=== PATIENT | female | born 1995 ===

== ENCOUNTER 2017-03-23 11:57 | Day surgery (SDC) | payer BC, OTHER ==
[2017-03-23 13:56] LABS: BASO # 0.1 K/uL (0.0-0.2); BASO % 0.5 % (0.0-2.0); EOS # 0.1 K/uL (0.0-0.7); HEMOGLOBIN 13.9 g/dL (11.0-16.0); LYMPH # 1.4 K/uL (1.0-4.3); LYMPH % 13.1 % (20.0-40.0); MEAN CELL VOLUME 88.7 fL (81.0-99.0); MEAN CORPUSCULAR HEMOGLOBIN 29.1 pg (27.0-31.0); MEAN CORPUSCULAR HGB CONC 32.8 g/dL (33.0-37.0); MEAN PLATELET VOLUME 9.2 fL (7.2-11.7); MONO # 0.5 K/uL (0.0-0.8); NEUT # 8.3 K/uL (1.8-7.0); NEUT % 80.4 % (50.0-75.0); NRBC % 0.1 % (0.0-2.0); RBC 4.78 Mil/uL (3.80-5.20); RED CELL DISTRIBUTION WIDTH 13.3 % (11.5-14.5); WHITE BLOOD COUNT 10.3 K/uL (4.8-10.8)
[2017-03-23 14:01] LABS: HCG,QUALITATIVE URINE NEGATIVE (NEGATIVE)
[2017-03-23 14:02] LABS: SQUAMOUS EPITHIAL 2 /hpf (0-5); URINE BACTERIA RARE (<OCC); URINE BILIRUBIN NEGATIVE (NEGATIVE); URINE BLOOD NEGATIVE (NEGATIVE); URINE CLARITY Clear (Clear); URINE COLOR Yellow (YELLOW); URINE GLUCOSE (UA) NORMAL (Normal); URINE LEUKOCYTE ESTERASE NEG Leu/uL (Negative); URINE NITRATE NEGATIVE (NEGATIVE); URINE PROTEIN NEGATIVE (NEGATIVE); URINE UROBILINOGEN NORMAL mg/dL (0.2-1.0)
[2017-03-23 14:07] LABS: ALBUMIN 4.1 g/dL (3.5-5.0)
[2017-03-23 14:09] LABS: GFR AFRICAN-AMERICAN > 60; GFR NON-AFRICAN AMERICAN > 60
[2017-03-23 14:10] LABS: ALB/GLOB RATIO 1.1 (1.0-2.1); ALT/SGPT 29 U/L (9-52); AST/SGOT 29 U/L (14-36); BLOOD UREA NITROGEN 9 mg/dL (7-17); CALCIUM 9.2 mg/dl (8.6-10.4)
--- NOTE | 2017-03-23 14:30 | C.PDOC ---
History Of Present Illness 21-year-old female presents to the emergency department with complaints of right -lower quadrant abdominal pain that started two weeks ago. Patient states she was seen in [facility] [place], where she had a CT scan and transvaginal US, they showed a large right ovarian cyst. Patient was not given any pain meds on discharge, and was instructed to f/u with OBGYN within two weeks. Patient reports worsening pain over the past week, which became severe this morning. Patient denies nausea/vomiting, fever/chills, chest pain, dysuria/hematuria, vaginal bleeding/discharge. Time Seen by Provider: 03/23/17 13:02 Chief Complaint (Nursing): Abdominal Pain History Per: Patient History/Exam Limitations: no limitations Onset/Duration Of Symptoms: Days Current Symptoms Are (Timing): Still Present Severity: Moderate Location Of Pain/Discomfort: RLQ Past Medical History Reviewed: Historical Data, Nursing Documentation, Vital Signs Vital Signs: Last Vital Signs Temp 98.4 F 03/24/17 08:00 Pulse 83 03/24/17 08:00 Resp 18 03/24/17 08:00 BP 102/58 L 03/24/17 08:00 Pulse Ox 99 03/28/17 17:38 - Medical History PMH: No Chronic Diseases Family History: States: No Known Family Hx - Social History Hx Alcohol Use: Yes Hx Substance Use: No - Immunization History Hx Tetanus Toxoid Vaccination: No Hx Influenza Vaccination: Yes Hx Pneumococcal Vaccination: No Review Of Systems Except As Marked, All Systems Reviewed And Found Negative. Constitutional: Negative for: Fever, Chills Cardiovascular: Negative for: Chest Pain Gastrointestinal: Negative for: Nausea, Vomiting Genitourinary: Positive for: Pelvic Pain. Negative for: Dysuria, Frequency, Hematuria, Vaginal Discharge, Vaginal Bleeding Neurological: Negative for: Weakness Physical Exam - Physical Exam Appears: Well, Non-toxic, In Acute Distress (in mild pain ) Skin: Warm, Dry, No Rash Eye(s): bilateral: Normal Inspection Oral Mucosa: Moist Neck: Normal ROM Cardiovascular: Rhythm Regular Respiratory: Normal Breath Sounds, No Rales, No Rhonchi, No Wheezing Gastrointestinal/Abdominal: Bowel Sounds, Soft, Tenderness (right adenexal and suprapubic TTP, (-) McBurney's), No Guarding, No Rebound Back: No CVA Tenderness Pelvic: Other (deferred - patient is a virgin) Extremity: Normal ROM Neurological/Psych: Oriented x3 ED Course And Treatment - Laboratory Results Result Diagrams: 03/24/17 09:13 03/23/17 13:40 ECG: Interpreted By Me, Viewed By Me (NSR 66 bpm, normal axis, no acute ST/T wave changes) ECG Interpretation: Normal O2 Sat by Pulse Oximetry: 99 (RA) Pulse Ox Interpretation: Normal - Radiology CXR: Interpreted by Me, Viewed By Me CXR Interpretation: Yes: No Acute Disease. No: Infiltrates Progress Note: Blood work, UA, pelviuc US ordered and reviewed. Patient given IV NS bolus, IV toradol. Patient unable to tolerate transvaginal US, and US report unable to rule out torsion - will discuss with high school foreign language teacher. 1656-Dr. Lugo (OB production line assembler) evaluated pt in ED, agrees with admission to same day surgery for large ovarian cyst, r/o possible torsion. - Physician Consult Information Physician Contacted: Carina Lugo Outcome Of Conversation: Discussed patient with Dr. Lugo, she will come down and evaluate patient in ER. Medical Decision Making Medical Decision Making: large ovarian cyst with concern for ovarian torsion, to go to OR with high school foreign language teacher Dr. Lugo Disposition - Disposition Disposition: HOSPITALIZED Disposition Time: 16:57 Condition: STABLE - Clinical Impression Clinical Impression: Adnexal pain, Ovarian cyst, Ovarian torsion - Scribe Statement The provider has reviewed the documentation as recorded by the Scribe (Alysha Mcgraw) All medical record entries made by the Scribe were at my direction and personally dictated by me. I have reviewed the chart and agree that the record accurately reflects my personal performance of the history, physical exam, medical decision making, and the department course for this patient. I have also personally directed, reviewed, and agree with the discharge instructions and disposition. Decision To Admit - Pt Status Changed To: Hospital Disposition Of: SDS- Endo,OR,Cath,IR - . Bed Request Type: Same Day Surgery Admitting Physician: Carina Lugo Patient Diagnosis: Adnexal pain, Ovarian cyst, Ovarian torsion
--- NOTE | 2017-03-23 15:34 | US ---
HISTORY: Right pelvic pain, ovarian cyst r/o torsion COMPARISON: None available. TECHNIQUE: Transabdominal and pelvic ultrasound was performed. FINDINGS: UTERUS: Measures 8.8 x 4.0 x 4.7 cm. Anteverted, normal in size and appearance. No fibroid or other mass lesion seen. ENDOMETRIUM: Measures 9.0 mm in diameter. Unremarkable. CERVIX: No cervical abnormality identified. RIGHT OVARY: There is a 10.8 x 9.0 x 11.6 cm large anechoic septated mass in the right adnexa. The right ovary is not discretely identified from the mass. LEFT OVARY: Measures we3.4 x 2.5 x 3.0 cm. No solid mass. Normal flow. FREE FLUID: No significant free fluid noted. OTHER FINDINGS: IMPRESSION: 1. 10.8 x 9.0 x 11.6 cm multi-septated cystic mass in the right adnexa are likely represents a septated cyst, cystadenoma and cystadenocarcinoma are other less likely differential considerations in this age group. Follow-up in 3 months is recommended to assess stability/ resolution. The right ovary is not distinctly identified. Ovarian torsion is not entirely excluded on this examination.
[2017-03-23] MEDS ORDERED: cefOXitin IV 2 gm in Dextrose 2 GM/50 ML BAG IVPB ONE (17:16)
--- NOTE | 2017-03-23 17:28 | RAD ---
PROCEDURE: CHEST RADIOGRAPH, 1 VIEW HISTORY: Preoperative COMPARISON: None available. FINDINGS: LUNGS: The lungs are well inflated and clear. PLEURA: No pneumothorax or pleural fluid seen. CARDIOVASCULAR: Normal. OSSEOUS STRUCTURES: No significant abnormalities. VISUALIZED UPPER ABDOMEN: Normal. OTHER FINDINGS: None. IMPRESSION: No active pulmonary disease.
--- NOTE | 2017-03-23 17:29 | CP.PCM.HP ---
History of Present Illness - History of Present Illness History of Present Illness: 21 y.o. G0 LNMP 02/23/17, c/o worsening RLQ pain today, pain scale 10/10; described a pulling, stinging sensation; associated with nausea and vomiting. S/ P ultrasound in E.D.: right ovarian anechoic septated mass, 10.8 x 9 x 11.6 cm. No comment made on blood flow to right adnexal mass. Normal left ovary with normal flow; no pelvic fluid. HPI: onset of RLQ pain 03/13/17, then 04/30. Worse 03/15/17 - [place] [facility] [place] performed: large septated right ovarian cyst with normal arterial and venous blood flows. Patient given IVFs and advised to F/U as outpatient with extruder operator helper. Between then and today, pain waxes and wanes, though could barely walk or sleep last night; vomited every other day. Painful BM. (+) appetite. P Ob: nullip P HOME HEALTH PROVIDER: virgin; 12 x 8 times per year x 5-6 PMH: denies PSH: 2014, right ACL surgery Meds: none NKDA Soc Hx: denies tobacco, illicit drug use. Soc EtOH. Lives with her mother. 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 Father alive 49 y.o.; both, no med issues. No known fam h/o cancer Present on Admission - Present on Admission Any Indicators Present on Admission: No Review of Systems - Review of Systems All systems: reviewed and no additional remarkable complaints except - Gastrointestinal Gastrointestinal: As Per HPI - Reproductive: Female Reproductive:Female: As Per HPI Past Patient History - Infectious Disease Hx of Infectious Diseases: None - Tetanus Immunizations Tetanus Immunization: Unknown - Past Medical History & Family History Past Medical History?: No Past Family History: Reviewed and not pertinent - Past Social History Smoking Status: Never Smoked Alcohol: Occasional Drugs: Denies Home Situation {Lives}: With Family - CARDIAC Hx Cardiac Disorders: No - PULMONARY Hx Respiratory Disorders: No - NEUROLOGICAL Hx Neurological Disorder: No - HEENT Hx HEENT Problems: No - RENAL Hx Chronic Kidney Disease: No - ENDOCRINE/METABOLIC Hx Endocrine Disorders: No - HEMATOLOGICAL/ONCOLOGICAL Hx Blood Disorders: No - INTEGUMENTARY Hx Dermatological Problems: No - MUSCULOSKELETAL/RHEUMATOLOGICAL Hx Musculoskeletal Disorders: No - GASTROINTESTINAL Hx Gastrointestinal Disorders: No - GENITOURINARY/GYNECOLOGICAL Hx Genitourinary Disorders: No Other/Comment: Right ovarian cyst on March 15, 2017 - PSYCHIATRIC Hx Psychophysiologic Disorder: No Hx Substance Use: No - SURGICAL HISTORY Hx Surgeries: Yes Hx Arthroscopy: Yes (2013, right ACL) - ANESTHESIA Hx Anesthesia: Yes Meds Allergies/Adverse Reactions: Allergies Allergy/AdvReac Type Severity Reaction Status Date / Time No Known Allergies Allergy Verified 03/23/17 12:17 Physical Exam - Constitutional Appears: Well, No Acute Distress - Head Exam Head Exam: NORMAL INSPECTION, NORMOCEPHALIC - Eye Exam Eye Exam: Normal appearance - ENT Exam ENT Exam: Mucous Membranes Moist - Neck Exam Neck exam: Positive for: Full Rom - Respiratory Exam Respiratory Exam: NORMAL BREATHING PATTERN - Cardiovascular Exam Cardiovascular Exam: REGULAR RHYTHM - GI/Abdominal Exam GI & Abdominal Exam: Normal Bowel Sounds - Exam Additional comments: deferred to the O.R. - Extremities Exam Extremities exam: Positive for: normal inspection - Neurological Exam Neurological exam: Alert, Oriented x3 - Psychiatric Exam Psychiatric exam: Normal Affect, Normal Mood Results - Vital Signs Recent Vital Signs: Last Vital Signs Temp 97.7 F 03/23/17 15:51 Pulse 61 03/23/17 15:51 Resp 18 03/23/17 15:51 BP 104/67 03/23/17 15:51 Pulse Ox 99 03/23/17 17:03 - Labs Result Diagrams: 03/23/17 13:40 03/23/17 13:40 Labs: Laboratory Results - last 24 hr 03/23/17 03/23/17 03/23/17 13:40 13:40 13:40 WBC 10.3 RBC 4.78 Hgb 13.9 Hct 42.4 MCV 88.7 MCH 29.1 MCHC 32.8 L RDW 13.3 Plt Count 275 MPV 9.2 Neut % (Auto) 80.4 H Lymph % (Auto) 13.1 L [place] % (Auto) 5.0 Eos % (Auto) 1.0 Baso % (Auto) 0.5 Neut # 8.3 H Lymph # 1.4 [place] # 0.5 Eos # 0.1 Baso # 0.1 Sodium 137 Potassium 4.2 Chloride 101 Carbon Dioxide 24 Anion Gap 16 BUN 9 Creatinine 0.6 L Est GFR ( Amer) > 60 Est GFR (Non-Af Amer) > 60 Random Glucose 87 Calcium 9.2 Total Bilirubin 0.9 AST 29 ALT 29 Alkaline Phosphatase 72 Total Protein 7.8 Albumin 4.1 Globulin 3.7 Albumin/Globulin Ratio 1.1 Urine Color Yellow Urine Clarity Clear Urine pH 6.0 Ur Specific [place] 1.015 Urine Protein Negative Urine Glucose (UA) Normal Urine Ketones Negative Urine Blood Negative Urine Nitrate Negative Urine Bilirubin Negative Urine Urobilinogen Normal Ur Leukocyte Esterase Neg Urine WBC (Auto) 1 Urine RBC (Auto) 1 Ur Squamous Epith Cells 2 Urine Bacteria Rare Urine HCG, Qual Negative Assessment & Plan - Assessment and Plan (Free Text) Assessment: Laboratory data and ultrasound reports reviewed by me personally 21 y.o. P0, large right ovarian cyst - severe lower abdominal pain (worsening) - r/o torsion. Conservative management versus surgical intervention was discussed: patient opted for surgery. R/B/C discussed; patient's questions answered. Consents signed, dated, witnessed and placed in chart. Patient last ate full meal 1930 hours 03/22/17; drank water for ultrasound approx 1400 hours today. Patient is clinically stable Plan: 1) Admit 2) NPO 3) IVFs 4) Mefoxin 5) outbound call center representative to O.R. - Date & Time Date: 03/23/17 Time: 17:38
[2017-03-23 17:44] LABS: INR 1.2; PROTHROMBIN TIME 13.4 SECONDS (9.7-12.2)
[2017-03-23] MEDS ORDERED: Midazolam 2 MG/2 ML VIAL ONE (17:56)
[2017-03-23] MEDS ORDERED: Propofol 10 mg/ml Inj (20 ML) ONE (17:56)
[2017-03-23] MEDS ORDERED: Succinylcholine Chloride 20 mg/ml Syr (5 ml) IV ONE (17:59)
[2017-03-23] MEDS ORDERED: Rocuronium 10 mg/ml (5 ml) ONE (18:00)
[2017-03-23] MEDS ORDERED: Lactated Ringer's 1,000 ML IV ONE ×3 (18:10→22:25)
[2017-03-23] MEDS ORDERED: ceFAZolin IV 1 gm in Dextrose 0 GM/0 ML BAG IVPB ONE (18:16)
[2017-03-23] MEDS ORDERED: cefTRIAXone IV 1 gm in Dextros 0 ML IVPB ONE (18:16)
[2017-03-23] MEDS ORDERED: Bupivacaine HCl 0.25% PF (10 ml) Inj ONE ×2 (18:23→21:22)
[2017-03-23] MEDS ORDERED: cefOXitin IV 1 gm in Dextrose 1 GM/50 ML BAG IVPB ONE (18:23)
[2017-03-23] MEDS ORDERED: Neostigmine Methylsulfate 3mg/3ml Syringe IV ONE (20:50)
[2017-03-23] MEDS ORDERED: HYDROmorphone 0.5 mg/0.5 ml ISec IVP PRN (21:19)
--- NOTE | 2017-03-23 21:58 | PCM.SURG1 ---
Surgeon's Initial Post Op Note - Surgeon's Notes Surgeon: Carina Lugo MD Strategic Intelligence Officer: Maciel Truong MD Type of Anesthesia: General Endo Anesthesia Administered By: Virgil Chambers DO Pre-Operative Diagnosis: Right ovarian cyst. severe lower (RLQ) pain; R/O ovarian torsion Operative Findings: Right ovarian cyst, 10 x 10 8 cm, with one revolution. Normal fallopian tubes bilatraly and normal left ovary and uterus. On aspiration , 260 mL, clear cystic fluid aspirated. Post-Operative Diagnosis: Right ovarian torsion, S/P right ovarian cystectomy Operation Performed: Laparoscopic right ovarian cystectomy Specimen/Specimens Removed: Right ovarian cyst wall and ovarian tissue Estimated Blood Loss: EBL {In ML}: 50 (U.O. 200 mL; IVFs 1600 mL LR) Blood Products Given: N/A Drains Used: No Drains Post-Op Condition: Good Date of Surgery/Procedure: 03/23/17 Time of Surgery/Procedure: 21:30 Addendum Addendum: 03/26/17 12:56 Dr. Maciel Truong was present for the entire duration of the procedure. His presence was necessary for the safe placement of trocars, adequate visualization of the surgical field at all times, and assuring hemostasis
[2017-03-23] MEDS ORDERED: Lactated Ringer's 1,000 ML IV SCH (22:00)
[2017-03-24] MEDS ORDERED: Oxycodone/Acetaminophen 5/325 mg Tab PO PRN (06:00)
--- NOTE | 2017-03-24 07:57 | CP.PCM.DIS ---
<Taylor Christopher - Last Filed: 03/24/17 08:14> Provider - Provider Date of Admission: 03/23/17 Attending physician: Carina Lugo MD Time Spent in preparation of Discharge (in minutes): 30 Diagnosis - Discharge Diagnosis (1) Right ovarian cyst Status: Resolved Priority: High Onset Date: 03/13/17 Comment: Stable, afebrile. F/U am CBC. Advance diet as tolerated. D/C fluids , thurston catheter. F/U voiding trial. Pain control as needed. Patient is cleared for discharge home, to follow up with LARGE SHEETFED PRESS OPERATOR within 1 week Hospital Course - Lab Results Lab Results: Most Recent Lab Values WBC 10.3 K/uL (4.8-10.8) 03/23/17 13:40 RBC 4.78 Mil/uL (3.80-5.20) 03/23/17 13:40 Hgb 13.9 g/dL (11.0-16.0) 03/23/17 13:40 Hct 42.4 % (34.0-47.0) 03/23/17 13:40 MCV 88.7 fL (81.0-99.0) 03/23/17 13:40 MCH 29.1 pg (27.0-31.0) 03/23/17 13:40 MCHC 32.8 g/dL (33.0-37.0) L 03/23/17 13:40 RDW 13.3 % (11.5-14.5) 03/23/17 13:40 Plt Count 275 K/uL (130-400) 03/23/17 13:40 MPV 9.2 fL (7.2-11.7) 03/23/17 13:40 Neut % (Auto) 80.4 % (50.0-75.0) H 03/23/17 13:40 Lymph % (Auto) 13.1 % (20.0-40.0) L 03/23/17 13:40 [place] % (Auto) 5.0 % (0.0-10.0) 03/23/17 13:40 Eos % (Auto) 1.0 % (0.0-4.0) 03/23/17 13:40 Baso % (Auto) 0.5 % (0.0-2.0) 03/23/17 13:40 Neut # 8.3 K/uL (1.8-7.0) H 03/23/17 13:40 Lymph # 1.4 K/uL (1.0-4.3) 03/23/17 13:40 [place] # 0.5 K/uL (0.0-0.8) 03/23/17 13:40 Eos # 0.1 K/uL (0.0-0.7) 03/23/17 13:40 Baso # 0.1 K/uL (0.0-0.2) 03/23/17 13:40 PT 13.4 SECONDS (9.7-12.2) H 03/23/17 17:20 INR 1.2 03/23/17 17:20 APTT 37 SECONDS (21-34) H 03/23/17 17:20 Sodium 137 mmol/L (132-148) 03/23/17 13:40 Potassium 4.2 mmol/L (3.6-5.2) 03/23/17 13:40 Chloride 101 mmol/L (98-107) 03/23/17 13:40 Carbon Dioxide 24 mmol/L (22-30) 03/23/17 13:40 Anion Gap 16 (10-20) 03/23/17 13:40 BUN 9 mg/dL (7-17) 03/23/17 13:40 Creatinine 0.6 MG/DL (0.7-1.2) L 03/23/17 13:40 Est GFR ( Amer) > 60 03/23/17 13:40 Est GFR (Non-Af Amer) > 60 03/23/17 13:40 Random Glucose 87 mg/dL (65-105) 03/23/17 13:40 Calcium 9.2 mg/dl (8.6-10.4) 03/23/17 13:40 Total Bilirubin 0.9 mg/dL (0.2-1.3) 03/23/17 13:40 AST 29 U/L (14-36) 03/23/17 13:40 ALT 29 U/L (9-52) 03/23/17 13:40 Alkaline Phosphatase 72 U/L (38-126) 03/23/17 13:40 Total Protein 7.8 g/dL (6.3-8.3) 03/23/17 13:40 Albumin 4.1 g/dL (3.5-5.0) 03/23/17 13:40 Globulin 3.7 gm/dL (2.2-3.9) 03/23/17 13:40 Albumin/Globulin Ratio 1.1 (1.0-2.1) 03/23/17 13:40 Urine Color Yellow (YELLOW) 03/23/17 13:40 Urine Clarity Clear (Clear) 03/23/17 13:40 Urine pH 6.0 (5.0-8.0) 03/23/17 13:40 Ur Specific [place] 1.015 (1.003-1.030) 03/23/17 13:40 Urine Protein Negative mg/dL (NEGATIVE) 03/23/17 13:40 Urine Glucose (UA) Normal mg/dL (Normal) 03/23/17 13:40 Urine Ketones Negative mg/dL (NEGATIVE) 03/23/17 13:40 Urine Blood Negative (NEGATIVE) 03/23/17 13:40 Urine Nitrate Negative (NEGATIVE) 03/23/17 13:40 Urine Bilirubin Negative (NEGATIVE) 03/23/17 13:40 Urine Urobilinogen Normal mg/dL (0.2-1.0) 03/23/17 13:40 Ur Leukocyte Esterase Neg Simona/uL (Negative) 03/23/17 13:40 Urine WBC (Auto) 1 /hpf (0-5) 03/23/17 13:40 Urine RBC (Auto) 1 /hpf (0-3) 03/23/17 13:40 Ur Squamous Epith Cells 2 /hpf (0-5) 03/23/17 13:40 Urine Bacteria Rare (<OCC) 03/23/17 13:40 Urine HCG, Qual Negative (NEGATIVE) 03/23/17 13:40 Blood Type O POSITIVE 03/23/17 17:20 Antibody Screen Negative 03/23/17 17:20 - Hospital Course Hospital Course: 21 yo G0 presented to the ED for worsening RLQ pain. Patient reports that the pain started 03/13/17 and continued to get worse. She was seen at [facility] [place] on 03/15/17 and was found to have a large septated R ovarian cyst with normal arterial and venous blood flow on ultrasound. Patient given IVFs and advised to F/U as outpatient with window machine operator. Patient reported that the pain is now intermittent and worsening. She could barely walk or sleep the night prior to arrival. Ultrasound on admission showed Right ovarian anechoic septated mass, 10.8 x 9 x 11.6 cm. No comment made on blood flow to R adnexal mass. Normal left ovary with normal flow; no pelvic fluid. Options for conservative management vs surgical management were discussed with the patient. Decision was made to proceed with surgery. Patient was made NPO, given antibiotics, and was taken to the OR for R ovarian cystectomy. Patient tolerated the procedure well. On day of discharge, patient was tolerating diet, ambulating, and pain was controlled. Patient denies any fevers, chills, headache, CP, SOB. Patient stable upon discharge home and is to follow up with LARGE SHEETFED PRESS OPERATOR within 1 week. - Date & Time of H&P Date of H&P: 03/23/17 Time of H&P: 17:17 Discharge Exam - Head Exam Head Exam: ATRAUMATIC, NORMAL INSPECTION, NORMOCEPHALIC - Eye Exam Eye Exam: EOMI, Normal appearance Pupil Exam: PERRL - ENT Exam ENT Exam: Mucous Membranes Moist - Neck Exam Neck exam: Full Rom, Normal Inspection - Respiratory Exam Respiratory Exam: Clear to PA & Lateral, NORMAL BREATHING PATTERN, UNREMARKABLE - Cardiovascular Exam Cardiovascular Exam: REGULAR RHYTHM, +S1, +S2 - GI/Abdominal Exam GI & Abdominal Exam: Hypoactive Bowel Sounds, Soft, Tenderness (Mild tenderness to palpation). absent: Distended, Guarding Additional comments: Incision c/d/i with dermabond - Extremities Exam Extremities exam: normal inspection, pedal pulses present - Back Exam Back exam: NORMAL INSPECTION - Neurological Exam Neurological exam: Alert, Oriented x3 - Psychiatric Exam Psychiatric exam: Normal Affect, Normal Mood - Skin Skin Exam: Normal Color, Warm Discharge Plan - Follow Up Plan Condition: GOOD Disposition: HOME/ ROUTINE Instructions: Laparoscopic Excision of Ovarian Cysts (DC) <Bhaskar Medeiros O - Last Filed: 03/24/17 08:54> Provider - Provider Attending physician: Carina Lugo MD Diagnosis - Discharge Diagnosis (1) S/P laparoscopic procedure Status: Acute (2) Status post ovarian cystectomy Status: Acute Hospital Course - Lab Results Lab Results: Most Recent Lab Values WBC 10.3 K/uL (4.8-10.8) 03/23/17 13:40 RBC 4.78 Mil/uL (3.80-5.20) 03/23/17 13:40 Hgb 13.9 g/dL (11.0-16.0) 03/23/17 13:40 Hct 42.4 % (34.0-47.0) 03/23/17 13:40 MCV 88.7 fL (81.0-99.0) 03/23/17 13:40 MCH 29.1 pg (27.0-31.0) 03/23/17 13:40 MCHC 32.8 g/dL (33.0-37.0) L 03/23/17 13:40 RDW 13.3 % (11.5-14.5) 03/23/17 13:40 Plt Count 275 K/uL (130-400) 03/23/17 13:40 MPV 9.2 fL (7.2-11.7) 03/23/17 13:40 Neut % (Auto) 80.4 % (50.0-75.0) H 03/23/17 13:40 Lymph % (Auto) 13.1 % (20.0-40.0) L 03/23/17 13:40 [place] % (Auto) 5.0 % (0.0-10.0) 03/23/17 13:40 Eos % (Auto) 1.0 % (0.0-4.0) 03/23/17 13:40 Baso % (Auto) 0.5 % (0.0-2.0) 03/23/17 13:40 Neut # 8.3 K/uL (1.8-7.0) H 03/23/17 13:40 Lymph # 1.4 K/uL (1.0-4.3) 03/23/17 13:40 [place] # 0.5 K/uL (0.0-0.8) 03/23/17 13:40 Eos # 0.1 K/uL (0.0-0.7) 03/23/17 13:40 Baso # 0.1 K/uL (0.0-0.2) 03/23/17 13:40 PT 13.4 SECONDS (9.7-12.2) H 03/23/17 17:20 INR 1.2 03/23/17 17:20 APTT 37 SECONDS (21-34) H 03/23/17 17:20 Sodium 137 mmol/L (132-148) 03/23/17 13:40 Potassium 4.2 mmol/L (3.6-5.2) 03/23/17 13:40 Chloride 101 mmol/L (98-107) 03/23/17 13:40 Carbon Dioxide 24 mmol/L (22-30) 03/23/17 13:40 Anion Gap 16 (10-20) 03/23/17 13:40 BUN 9 mg/dL (7-17) 03/23/17 13:40 Creatinine 0.6 MG/DL (0.7-1.2) L 03/23/17 13:40 Est GFR ( Amer) > 60 03/23/17 13:40 Est GFR (Non-Af Amer) > 60 03/23/17 13:40 Random Glucose 87 mg/dL (65-105) 03/23/17 13:40 Calcium 9.2 mg/dl (8.6-10.4) 03/23/17 13:40 Total Bilirubin 0.9 mg/dL (0.2-1.3) 03/23/17 13:40 AST 29 U/L (14-36) 03/23/17 13:40 ALT 29 U/L (9-52) 03/23/17 13:40 Alkaline Phosphatase 72 U/L (38-126) 03/23/17 13:40 Total Protein 7.8 g/dL (6.3-8.3) 03/23/17 13:40 Albumin 4.1 g/dL (3.5-5.0) 03/23/17 13:40 Globulin 3.7 gm/dL (2.2-3.9) 03/23/17 13:40 Albumin/Globulin Ratio 1.1 (1.0-2.1) 03/23/17 13:40 Urine Color Yellow (YELLOW) 03/23/17 13:40 Urine Clarity Clear (Clear) 03/23/17 13:40 Urine pH 6.0 (5.0-8.0) 03/23/17 13:40 Ur Specific [place] 1.015 (1.003-1.030) 03/23/17 13:40 Urine Protein Negative mg/dL (NEGATIVE) 03/23/17 13:40 Urine Glucose (UA) Normal mg/dL (Normal) 03/23/17 13:40 Urine Ketones Negative mg/dL (NEGATIVE) 03/23/17 13:40 Urine Blood Negative (NEGATIVE) 03/23/17 13:40 Urine Nitrate Negative (NEGATIVE) 03/23/17 13:40 Urine Bilirubin Negative (NEGATIVE) 03/23/17 13:40 Urine Urobilinogen Normal mg/dL (0.2-1.0) 03/23/17 13:40 Ur Leukocyte Esterase Neg Simona/uL (Negative) 03/23/17 13:40 Urine WBC (Auto) 1 /hpf (0-5) 03/23/17 13:40 Urine RBC (Auto) 1 /hpf (0-3) 03/23/17 13:40 Ur Squamous Epith Cells 2 /hpf (0-5) 03/23/17 13:40 Urine Bacteria Rare (<OCC) 03/23/17 13:40 Urine HCG, Qual Negative (NEGATIVE) 03/23/17 13:40 Blood Type O POSITIVE 03/23/17 17:20 Antibody Screen Negative 03/23/17 17:20 - Hospital Course Hospital Course: Pt reviewed and examined at her bedside with resident and agrees with assessment. Bhaskar Medeiros M.D.
[2017-03-24 09:13] VITALS: BP 102/58; PULSE 83; RESP 18; TEMP 98.4; O2SAT 99
[2017-03-24 09:23] LABS: MONO # 0.9 K/uL (0.0-0.8); RBC 3.94 Mil/uL (3.80-5.20)
[2017-03-24 09:33] LABS: BASO % 0.4 % (0.0-2.0); EOS % 0.3 % (0.0-4.0); LYMPH # 1.9 K/uL (1.0-4.3); LYMPH % 14.8 % (20.0-40.0); MEAN CELL VOLUME 88.4 fL (81.0-99.0); MEAN CORPUSCULAR HGB CONC 32.8 g/dL (33.0-37.0); MEAN PLATELET VOLUME 9.3 fL (7.2-11.7); MONO % 6.6 % (0.0-10.0); NEUT # 10.2 K/uL (1.8-7.0); NEUT % 77.9 % (50.0-75.0); RED CELL DISTRIBUTION WIDTH 13.5 % (11.5-14.5); WHITE BLOOD COUNT 13.1 K/uL (4.8-10.8)
[2017-03-24 09:41] LABS: HEMOGLOBIN 11.4 g/dL (11.0-16.0)
--- NOTE | 2017-03-28 19:25 | CARD ---
APPROVED REPORT EKG Measurement Heart [id number] <Conclusion> Normal sinus rhythm Normal ECG
--- NOTE | 2017-04-04 05:38 | OP ---
PROCEDURE DATE: 03/23/2017 PREOPERATIVE DIAGNOSIS: Right ovarian cyst with severe right lower quadrant pain, rule out ovarian torsion. POSTOPERATIVE DIAGNOSIS: Right ovarian torsion, status post right ovarian cystectomy. SURGEON: Carina Lugo MD ALL SOURCE INTELLIGENCE TECHNICIAN: Maciel Truong MD. TYPE OF ANESTHESIA: General with endotracheal intubation. ANESTHESIA ADMINISTERED BY: Virgil Chambers DO FINDINGS: EUA: Anteverted uterus; right adnexal fullness. At laparoscopy: right ovarian cyst of approximately 12 x 10 x 10cm with one revolution involving the right fallopian tube and right infundibulopelvic ligament. Otherwise, normal fallopian tubes bilaterally. Normal left ovary and normal size uterus. On aspiration of the cyst, 260 mL clear cystic fluid was retrieved. OPERATION PERFORMED: Laparoscopic right ovarian cystectomy. SPECIMEN: Portions of right ovary and right ovarian cyst wall. ESTIMATED BLOOD LOSS: 50 mL. IV FLUID INTAKE: 1600 mL of lactated Ringer's was given. URINE OUTPUT: 200 mL clear urine. BLOOD PRODUCTS: None. COMPLICATIONS: None. DESCRIPTION OF PROCEDURE: The patient was taken to the operating room after having obtained informed consent to the anticipated procedure. This included a discussion of possible complications including but not limited to infection requiring antibiotics, repair of any damage to internal organs, removal of any diseased tissues. She was placed on operating table in supine position where general anesthesia was administered without incident. She was then repositioned to the dorsal lithotomy position and her legs were placed in Krishna stirrups. The abdomen and perineum were then prepped and she was draped in usual sterile fashion. A Mca catheter was inserted under sterile condition. Examination under anesthesia was performed, findings as above. Using a Kenrick speculum, the cervix was visualized. The anterior lip was grasped with a single tooth tenaculum and the uterus was sounded to 8 cm. A HUMI uterine manipulator was then inserted without incident. The speculum was removed and attention was then directed to the abdomen. Using an 11-blade scalpel, a stab wound was made directly in the umbilical fold. A Veress needle was inserted and after assuring adequate and safe placement, pneumoperitoneum was created. After assuring this, the incision was extended to allow introduction of a 5 mm trocar. The camera was inserted and adequate and safe entry into the abdominal cavity was noted. The insufflator was reconnected and visualization of the pelvic cavity with the findings as described above. Two additional ports were inserted in the right and left lower quadrants, both 5 mm size - each was inserted under direct visualization. Using atraumatic graspers, the revolution was reversed. All tissue was noted to be healthy and pink. There was no evidence of necrosis or any compromise of the vascular system to the right adnexa. Using a syringe, the cyst was pierced and as described above, 260 mL of clear cystic fluid was obtained. A sample of this was also submitted to cytology for further analysis. The decision was then made performed cystectomy and using the Endo BRANDON, the right ovarian wall with the cyst wall and right ovarian tissue were subsequently trimmed and removed. Using an EndoCatch, the specimens were removed through the trocar on the left lower quadrant which was upgraded to a 12 mm trocar. Copious irrigation was performed. Visualization of the upper abdominal cavity revealed a normal-appearing liver and gallbladder. Hemostasis was assured on the ends of the ovarian tissue using monopolar cautery and Floseal was applied along the edge. The pneumoperitoneum was released. Under direct visualization, the 12 mm port was closed using the J suture closer apparatus. The remaining 5 mm ports were reapproximated using 4-0 Monocryl in a subcuticular fashion. Each site had approximately 5 mL of 0.25% Marcaine infiltrated. Attention was then directed to the vagina where the HUMI was removed. There was a need to provide additional hemostasis on the cervix and this was performed using silver nitrate sticks. All subsequent instruments were removed. The patient was repositioned to the supine position and she was extubated. She was then transferred to the PACU in stable condition. Dr. Truong was present for the entire procedure, from beginning to end. His presence was necessary for: 1) adequate visualization of the operative field at all times 2) assisting in assuring adequate hemostasis Carina MD Parish BHARGAV
== END 2017-03-24 15:35 | disposition home or self-care (01) ==
LOC: C.ER 11:57 → C.SDS 16:57 → C.4M 21:50 → C.SDS 03-24 15:35
PROVIDERS: ATTEND Obstetrics & Gynecology
DX: D27.0 Benign neoplasm of right ovary (principal); N83.511 Torsion of right ovary and ovarian pedicle; Z98.890 Other specified postprocedural states